=== PATIENT | female | born 2005 | race Caucasian/White ===

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

== ENCOUNTER 2023-05-06 11:51 | Outpatient (CLI) | payer OTHER, SELFPAY ==
[2023-05-08 14:53] LABS: TB Skin Test Erythema 0 mm; TB Skin Test Induration 0 mm (0-10); TB Skin Test Interpretation Negative (Negative); TB Skin Test Site Left Arm
== END 2023-05-06 11:52 | disposition home or self-care (01) ==
LOC: CHSLAB 11:52
PROVIDERS: PCP Nurse Practitioner Family; Visit Provider Nurse Practitioner Family
DX: Z02.0 Encounter for examination for admission to educational institution (principal)
CPT/HCPCS: 36415; 86580

== ENCOUNTER 2023-05-08 14:15 | Outpatient (CLI) | payer OTHER, SELFPAY ==
[2023-05-12 12:06] LABS: TB Skin Test Erythema 0 mm; TB Skin Test Induration 0 mm (0-10); TB Skin Test Interpretation Negative (Negative); TB Skin Test Site Right Arm
== END 2023-05-08 14:16 | disposition home or self-care (01) ==
LOC: CHSLAB 14:16
PROVIDERS: PCP Nurse Practitioner Family; Visit Provider Nurse Practitioner Family
DX: Z02.0 Encounter for examination for admission to educational institution (principal)
CPT/HCPCS: 36415; 86580

== ENCOUNTER 2024-05-02 16:04 | Outpatient (CLI) | payer OTHER, SELFPAY ==
[2024-05-05 13:18] LABS: TB Skin Test Erythema 0 mm; TB Skin Test Induration 0 mm (0-10); TB Skin Test Site Left Arm
[2024-05-05 13:19] LABS: TB Skin Test Interpretation Negative (Negative)
== END 2024-05-02 16:05 | disposition home or self-care (01) ==
PROVIDERS: PCP Nurse Practitioner Family; Visit Provider Nurse Practitioner Family
DX: Z02.0 Encounter for examination for admission to educational institution (principal)
CPT/HCPCS: 36415; 86580